=== PATIENT | female | born 1995 | race Caucasian/White ===

== ENCOUNTER 2016-10-16 21:02 | Emergency (ER) | payer BC ==
[2016-10-16 21:58] LABS: Hematocrit 42 % (35-47); Hemoglobin 14.2 g/dl (12.0-16.0); Mean Corpuscular HGB Conc 34 g/dl (31-36); Mean Corpuscular Hemoglobin 31 pg (27-31); Mean Corpuscular Volume 91 fL (80-97); Mean Platelet Volume 8 um3 (7.4-10.4); Red Blood Count 4.64 10^6/ul (4.0-5.4); Red Cell Distribution Width 12 % (10.5-15); White Blood Count 8.9 10^3/ul (3.5-10.8)
[2016-10-16 22:09] LABS: ALT 7 U/L (7-52); AST 18 U/L (13-39); Alkaline Phosphatase 68 U/L (34-104); Anion Gap 10 mmol/L (2-11); BUN/Creatinine Ratio 13.5 (8-20); Benzodiazepine Urine Screen None Detected (None Detect); Blood Urea Nitrogen 10 mg/dL (6-24); CO2 Carbon Dioxide 23 mmol/L (22-32); Calcium 10.1 mg/dL (8.6-10.3); Chloride 104 mmol/L (101-111); EGFR African American 127.4 (>60); EGFR Non-African American 99.1 (>60); Globulin 3.2 g/dL (2-4); Glucose 104 mg/dL (70-100); Potassium 3.5 mmol/L (3.5-5.0); Sodium 137 mmol/L (133-145); Total Protein 8.2 g/dL (6.4-8.9); Urine Bacteria 1+ (Absent); Urine Bilirubin Negative (Negative); Urine Glucose Negative (Negative); Urine Nitrite Negative (Negative)
[2016-10-16 22:36] LABS: Acetaminophen < 15 mcg/mL; Alcohol < 10 mg/dL (<10); Salicylate < 2.50 mg/dL (<30)
[2016-10-16 22:47] LABS: TSH (Thyroid Stimulating Horm) 1.07 mcIU/mL (0.34-5.60)
[2016-10-17] MEDS ORDERED: Acetaminophen TAB* 325 MG PO ONE (00:42)
[2016-10-17] MEDS ORDERED: Acetaminophen TAB* 325 MG ONE (00:44)
[2016-10-17] MEDS ORDERED: Ondansetron ODT TAB* 4 MG PO ONE (01:01)
[2016-10-17] MEDS ORDERED: Ondansetron ODT TAB* 4 MG ONE (01:02)
[2016-10-17 06:56] VITALS: BP 109/53
--- NOTE | 2016-10-19 23:44 | ED ---
I, Oh,Diana, scribed for Robert Maxwell MD on 10/16/16 at 2221 . Psychiatric Complaint - HPI Summary HPI Summary: This 21 y/o female presents to ED after mother called police for pt's expression of SI. Pt reports that she had a dispute with her mother and made statement involving "blowing my brains out". Pt is currently denying any SI or any plan, dismissing her earlier SI statement and stating her mother is "being stupid". PMHx does include known depression with tx hx with prozac. - History Of Current Complaint Chief Complaint: EDMentalHealth Time Seen by Provider: 10/16/16 21:53 Hx Obtained From: Patient, Medical Records Onset/Duration: Sudden Onset Timing: Constant Severity Initially: Moderate Severity Currently: Moderate Character: Depressed Aggravating Factor(s): Nothing Alleviating Factor(s): Nothing Associated Signs And Symptoms: Positive: Negative Related History: Positive For: Prior Psychiatric Issues - Allergies/Home Medications Allergies/Adverse Reactions: Allergies Allergy/AdvReac Type Severity Reaction Status Date / Time No Known Allergies Allergy Verified 10/17/16 00:47 PMH/Surg Hx/FS Hx/Imm Hx Psychiatric History: Reports: Hx Depression Infectious Disease History: No Infectious Disease History: Denies: Traveled Outside the US in Last 30 Days - Family History Known Family History: Negative: Cardiac Disease - Social History Alcohol Use: None Hx Substance Use: No Substance Use Type: Reports: None Hx Tobacco Use: No Smoking Status (MU): Never Smoked Tobacco Review of Systems Negative: Fever Negative: Erythema Negative: Sore Throat Negative: Chest Pain Negative: Shortness Of Breath Negative: Abdominal Pain, Nausea Negative: dysuria, hematuria Negative: Myalgia, Edema Negative: Rash Neurological: Other - negative for dizziness Positive: Depressed All Other Systems Reviewed And Are Negative: Yes Physical Exam - Summary Physical Exam Summary: Constitutional: Well-developed, Well-nourished, Alert. (-) Distressed Skin: Warm, Dry HENT: Normocephalic; Atraumatic Eyes: Conjunctiva normal Neck: Musculoskeletal ROM normal neck. (-) JVD, (-) Stridor, (-) Tracheal deviation Cardio: Rhythm regular, rate normal, Heart sounds normal; Intact distal pulses; The pedal pulses are 2+ and symmetric. Radial pulses are 2+ and symmetric. (-) Murmur Pulmonary/Chest wall: Effort normal. (-) Respiratory distress, (-) Wheezes, (-) Rales Abd: Soft, (-) Tenderness, (-) Distension, (-) Guarding, (-) Rebound Musculoskeletal: (-) Edema Lymph: (-) Cervical adenopathy Neuro: Alert, Oriented x3 Psych: Mood and affect Normal Triage Information Reviewed: Yes Vital Signs On Initial Exam: Initial Vitals Temp Pulse Resp BP Pulse Ox 99.3 F 97 18 121/62 98 10/16/16 21:19 10/16/16 21:19 10/16/16 21:19 10/16/16 21:19 10/16/16 21:19 Vital Signs Reviewed: Yes Diagnostics - Vital Signs Vital Signs Temp Pulse Resp BP Pulse Ox 10/16/16 21:19 99.3 F 97 18 121/62 98 - Laboratory Lab Results: Lab Results 10/16/16 10/16/16 10/16/16 Range/Units 21:45 21:45 21:45 WBC 8.9 (3.5-10.8) 10^3/ul RBC 4.64 (4.0-5.4) 10^6/ul Hgb 14.2 (12.0-16.0) g/dl Hct 42 (35-47) % MCV 91 (80-97) fL MCH 31 (27-31) pg MCHC 34 (31-36) g/dl RDW 12 (10.5-15) % Plt Count 232 (150-450) 10^3/ul MPV 8 (7.4-10.4) um3 Neut % (Auto) 71.2 (38-83) % Lymph % (Auto) 21.8 L (25-47) % [place] % (Auto) 5.5 (1-9) % Eos % (Auto) 0.8 (0-6) % Baso % (Auto) 0.7 (0-2) % Absolute Neuts (auto) 6.3 (1.5-7.7) 10^3/ul Absolute Lymphs (auto) 1.9 (1.0-4.8) 10^3/ul Absolute Monos (auto) 0.5 (0-0.8) 10^3/ul Absolute Eos (auto) 0.1 (0-0.6) 10^3/ul Absolute Basos (auto) 0.1 (0-0.2) 10^3/ul Absolute Nucleated RBC 0 10^3/ul Nucleated RBC % 0 Sodium 137 (133-145) mmol/L Potassium 3.5 (3.5-5.0) mmol/L Chloride 104 (101-111) mmol/L Carbon Dioxide 23 (22-32) mmol/L Anion Gap 10 (2-11) mmol/L BUN 10 (6-24) mg/dL Creatinine 0.74 (0.51-0.95) mg/dL Est GFR ( Amer) 127.4 (>60) Est GFR (Non-Af Amer) 99.1 (>60) BUN/Creatinine Ratio 13.5 (8-20) Glucose 104 H (70-100) mg/dL Calcium 10.1 (8.6-10.3) mg/dL Total Bilirubin 0.50 (0.2-1.0) mg/dL AST 18 (13-39) U/L ALT 7 (7-52) U/L Alkaline Phosphatase 68 (34-104) U/L Total Protein 8.2 (6.4-8.9) g/dL Albumin 5.0 (3.2-5.2) g/dL Globulin 3.2 (2-4) g/dL Albumin/Globulin Ratio 1.6 (1-3) TSH 1.07 (0.34-5.60) mcIU/mL Urine Color Yellow Urine Appearance Clear Urine pH 6.0 (5-9) Ur Specific [place] 1.006 L (1.010-1.030) Urine Protein 1+(30 mg/dl) H (Negative) Urine Ketones Negative (Negative) Urine Blood Negative (Negative) Urine Nitrate Negative (Negative) Urine Bilirubin Negative (Negative) Urine Urobilinogen Negative (Negative) Ur Leukocyte Esterase Negative (Negative) Urine WBC (Auto) Trace(0-5/hpf) (Absent) Urine RBC (Auto) Trace(0-2/hpf) (Absent) Ur Squamous Epith Cells Present H (Absent) Urine Bacteria 1+ H (Absent) Urine Glucose Negative (Negative) Salicylates < 2.50 (<30) mg/dL Urine Opiates Screen (None Detect) Acetaminophen < 15 mcg/mL Ur Barbiturates Screen (None Detect) Ur Phencyclidine Scrn (None Detect) Ur Amphetamines Screen (None Detect) U Benzodiazepines Scrn (None Detect) Urine Cocaine Screen (None Detect) U Cannabinoids Screen (None Detect) Serum Alcohol < 10 (<10) mg/dL 10/16/16 Range/Units 21:45 WBC (3.5-10.8) 10^3/ul RBC (4.0-5.4) 10^6/ul Hgb (12.0-16.0) g/dl Hct (35-47) % MCV (80-97) fL MCH (27-31) pg MCHC (31-36) g/dl RDW (10.5-15) % Plt Count (150-450) 10^3/ul MPV (7.4-10.4) um3 Neut % (Auto) (38-83) % Lymph % (Auto) (25-47) % [place] % (Auto) (1-9) % Eos % (Auto) (0-6) % Baso % (Auto) (0-2) % Absolute Neuts (auto) (1.5-7.7) 10^3/ul Absolute Lymphs (auto) (1.0-4.8) 10^3/ul Absolute Monos (auto) (0-0.8) 10^3/ul Absolute Eos (auto) (0-0.6) 10^3/ul Absolute Basos (auto) (0-0.2) 10^3/ul Absolute Nucleated RBC 10^3/ul Nucleated RBC % Sodium (133-145) mmol/L Potassium (3.5-5.0) mmol/L Chloride (101-111) mmol/L Carbon Dioxide (22-32) mmol/L Anion Gap (2-11) mmol/L BUN (6-24) mg/dL Creatinine (0.51-0.95) mg/dL Est GFR ( Amer) (>60) Est GFR (Non-Af Amer) (>60) BUN/Creatinine Ratio (8-20) Glucose (70-100) mg/dL Calcium (8.6-10.3) mg/dL Total Bilirubin (0.2-1.0) mg/dL AST (13-39) U/L ALT (7-52) U/L Alkaline Phosphatase (34-104) U/L Total Protein (6.4-8.9) g/dL Albumin (3.2-5.2) g/dL Globulin (2-4) g/dL Albumin/Globulin Ratio (1-3) TSH (0.34-5.60) mcIU/mL Urine Color Urine Appearance Urine pH (5-9) Ur Specific [place] (1.010-1.030) Urine Protein (Negative) Urine Ketones (Negative) Urine Blood (Negative) Urine Nitrate (Negative) Urine Bilirubin (Negative) Urine Urobilinogen (Negative) Ur Leukocyte Esterase (Negative) Urine WBC (Auto) (Absent) Urine RBC (Auto) (Absent) Ur Squamous Epith Cells (Absent) Urine Bacteria (Absent) Urine Glucose (Negative) Salicylates (<30) mg/dL Urine Opiates Screen None detected (None Detect) Acetaminophen mcg/mL Ur Barbiturates Screen None detected (None Detect) Ur Phencyclidine Scrn None detected (None Detect) Ur Amphetamines Screen None detected (None Detect) U Benzodiazepines Scrn None detected (None Detect) Urine Cocaine Screen None detected (None Detect) U Cannabinoids Screen Presumptive positive H (None Detect) Serum Alcohol (<10) mg/dL Result Diagrams: 10/16/16 21:45 10/16/16 21:45 Lab Statement: Any lab studies that have been ordered have been reviewed, and results considered in the medical decision making process. Course/Dx - Course Assessment/Plan: This 21 y/o female presents to ED as 941 after pt's mother called law enforcement regarding her SI statement. Pt reports that she got involved with verbal dispute with her mother and made statement involving "blowing my brains out". At the time of initial evaluation pt is dismissing SI statement, stating that her mother is "being stupid". Pt is not in acute distress or pain at the time of initial evaluation. Bloodwork is wnl. UA is also wnl except some contamination. Toxicology indicates presumptive positive for cannabinoid. Pt is at this moment at 2225 PM medically cleared for psych eval. - Differential Dx/Clinical Impression Provider Diagnosis: Depression - Physician Notifications Discussed Care Of Patient With: Mental Health Unit Patient Is Medically Stable For: Psych Evaluation - at 2225 PM Discharge - Discharge Plan Condition: Stable Disposition: HOME Patient Education Materials: Depression (ED), Suicide Prevention for Adults (ED ), Anxiety (ED) Referrals: [facility][1] [Other] (Please call [facility] and request an intake appointment to establish regular therapy.) The documentation as recorded by the Chidi naranjo Soohyun accurately reflects the service I personally performed and the decisions made by me, Robert Maxwell MD.
== END 2016-10-17 07:29 | disposition home or self-care (01) ==
LOC: ED 21:02
DX: F32.9 Major depressive disorder, single episode, unspecified (principal)
CPT/HCPCS: 36415; 80053; 80307; 80320; 80329; 81003; 81015; 84443; 85025; 87086; 99284; A9270-GY; G0480

== ENCOUNTER → 2017-10-20 00:40 | Emergency (ER) | payer BC ==
[~2017-10-20 00:40] MED LIST: Haloperidol INJ IV/IM* 5 MG/ML AMP ONE; LORazepam INJ* 2 MG/ML 1 ML VIAL ONE; diPHENhydraMINE IV* 50 MG/ML 1 ml VIAL (BENADRYL) ONE
[2017-10-20 02:01] LABS: ABS Basophils 0 10^3/ul (0-0.2); ABS Eosinophils 0 10^3/ul (0-0.6); ABS Lymphocytes 1.9 10^3/ul (1.0-4.8); ABS Monocytes 0.4 10^3/ul (0-0.8); ABS Neutrophils 3.7 10^3/ul (1.5-7.7); ABS Nucleated RBC 0 10^3/ul; Eosinophil % 0.5 % (0-6); Hematocrit 41 % (35-47); Hemoglobin 14.1 g/dl (12.0-16.0); Lymphocyte % 31.2 % (25-47); Mean Corpuscular HGB Conc 35 g/dl (31-36); Mean Corpuscular Hemoglobin 33 pg (27-31); Mean Corpuscular Volume 96 fL (80-97); Mean Platelet Volume 8 um3 (7.4-10.4); Nucleated Red Blood Cells % 0; Platelet Count 236 10^3/ul (150-450); Red Blood Count 4.28 10^6/ul (4.0-5.4); Red Cell Distribution Width 13 % (10.5-15)
[2017-10-20 02:15] LABS: EGFR Non-African American 101.3 (>60)
--- NOTE | 2017-10-20 07:55 | ED ---
Abhishek Golden Angela, scribed for David Duran MD on 10/20/17 at 0058 . Psychiatric Complaint - HPI Summary HPI Summary: This pt is a 22 y/o female presenting to [facility] via police officers on a 9.41. reports the pt was with a friend leaving from the bar and pt wanted to walk to her house (which is 5 miles away). Friend reported pt only had a couple of drinks but is unknown is she took any drugs. states the pt has been making irrational decisions and talking to herself. notes they got her step-father to pick her up from the street but she jumped off his truck. Step- father made a comment about the pt "going through a rough time." states the pt was not willing to get into their police car. At one point pt called her boss and went off on him. Boss notes the pt's behavior is not normal and he has never seen the pt like this. reports the pt has made SI comments, about cutting her wrist. Per ED security, pt has made comments about "wanting to fight" the ED staff. denies pt has made auditory or visual hallucinations comments. HPI is limited due to level 5 caveat - pt is uncooperative and combative in the ED. - History Of Current Complaint Chief Complaint: EDMentalHealth Hx Obtained From: Other: - Hx From Patient Unobtainable Due To: Other - pt is uncooperative Onset/Duration: Still Present Timing: Intermittent Episode Lasting Severity Currently: Severe Character: Manic, Stuporous Aggravating Factor(s): Nothing Alleviating Factor(s): Nothing Associated Signs And Symptoms: Positive: Confused, Paranoid Behavior Has Suicidal: Reports: Thoughts, With A Plan, Demonstrates Gesture Has Homicidal: Reports: Thoughts, Demonstrates Gesture. Denies: With A Plan - Allergies/Home Medications Allergies/Adverse Reactions: Allergies Allergy/AdvReac Type Severity Reaction Status Date / Time No Known Allergies Allergy Verified 10/17/16 00:47 PMH/Surg Hx/FS Hx/Imm Hx Endocrine/Hematology History: Denies: Hx Diabetes Cardiovascular History: Denies: Hx Hypertension Psychiatric History: Reports: Hx Depression Denies: Hx Eating Disorder Infectious Disease History: No Infectious Disease History: Denies: Traveled Outside the [place] in Last 30 Days - Family History Known Family History: Positive: Unknown - due to level 5 caveat - pt is uncooperative and combative Negative: Cardiac Disease - Social History Alcohol Use: None Hx Substance Use: No Substance Use Type: Reports: None Substance Use Comment - Amount & Last Used: occasionally Hx Tobacco Use: No Smoking Status (MU): Never Smoked Tobacco Review of Systems - ROS Summary Review of Systems Summary: ROS IS LIMITED DUE TO LEVEL 5 CAVEAT - PT IS UNCOOPERATIVE AND COMBATIVE Negative: Fever, Chills Psychological: Other - SI thoughts/plan, HI thoughts. Irrational. Combative. All Other Systems Reviewed And Are Negative: No Physical Exam - Summary Physical Exam Summary: Appearance: Well-appearing, Well-nourished Skin: Warm Eyes: Normal ENT: Normal Neck: Supple, nontender Respiratory: Clear to auscultation Cardiovascular: Normal S1, S2. No murmurs. Normal distal pulses. Abdomen: Soft, nontender Musculoskeletal: Normal, Strength/ROM Intact Neurological: Normal, A&Ox3. No obvious focal abnormalities. Psychiatric: Pt is unwilling to answer questions. Appears agitated and combative , has made threats to hurt staff and police officers. Triage Information Reviewed: Yes Vital Signs On Initial Exam: Initial Vitals Temp Pulse Resp BP Pulse Ox 97.4 F 132 24 133/109 99 10/20/17 00:43 10/20/17 00:43 10/20/17 00:43 10/20/17 00:43 10/20/17 00:43 Vital Signs Reviewed: Yes Diagnostics - Vital Signs Vital Signs Temp Pulse Resp BP Pulse Ox 10/20/17 00:43 97.4 F 132 24 133/109 99 - Laboratory Lab Results: Lab Results 10/20/17 10/20/17 Range/Units 01:35 01:35 WBC 6.0 (3.5-10.8) 10^3/ul RBC 4.28 (4.0-5.4) 10^6/ul Hgb 14.1 (12.0-16.0) g/dl Hct 41 (35-47) % MCV 96 (80-97) fL MCH 33 H (27-31) pg MCHC 35 (31-36) g/dl RDW 13 (10.5-15) % Plt Count 236 (150-450) 10^3/ul MPV 8 (7.4-10.4) um3 Neut % (Auto) 61.6 (38-83) % Lymph % (Auto) 31.2 (25-47) % [place] % (Auto) 6.2 (1-9) % Eos % (Auto) 0.5 (0-6) % Baso % (Auto) 0.5 (0-2) % Absolute Neuts (auto) 3.7 (1.5-7.7) 10^3/ul Absolute Lymphs (auto) 1.9 (1.0-4.8) 10^3/ul Absolute Monos (auto) 0.4 (0-0.8) 10^3/ul Absolute Eos (auto) 0 (0-0.6) 10^3/ul Absolute Basos (auto) 0 (0-0.2) 10^3/ul Absolute Nucleated RBC 0 10^3/ul Nucleated RBC % 0 Sodium 145 (133-145) mmol/L Potassium 3.5 (3.5-5.0) mmol/L Chloride 110 (101-111) mmol/L Carbon Dioxide 25 (22-32) mmol/L Anion Gap 10 (2-11) mmol/L BUN 8 (6-24) mg/dL Creatinine 0.72 (0.51-0.95) mg/dL Est GFR ( Amer) 130.3 (>60) Est GFR (Non-Af Amer) 101.3 (>60) BUN/Creatinine Ratio 11.1 (8-20) Glucose 90 (70-100) mg/dL Calcium 9.3 (8.6-10.3) mg/dL Total Bilirubin 0.30 (0.2-1.0) mg/dL AST 24 (13-39) U/L ALT 15 (7-52) U/L Alkaline Phosphatase 75 (34-104) U/L Total Protein 7.6 (6.4-8.9) g/dL Albumin 4.7 (3.2-5.2) g/dL Globulin 2.9 (2-4) g/dL Albumin/Globulin Ratio 1.6 (1-3) TSH 1.12 (0.34-5.60) mcIU/mL Beta HCG, Quant < 0.60 mIU/mL Salicylates < 2.50 (<30) mg/dL Acetaminophen < 15 mcg/mL Serum Alcohol 304 H (<10) mg/dL Result Diagrams: 10/20/17 01:35 10/20/17 01:35 Lab Statement: Any lab studies that have been ordered have been reviewed, and results considered in the medical decision making process. - CT Brain CT CT Interpretation: No Acute Changes - IMPRESSION: No evidence of pathology. Dr. Duran has reviewed this radiology report. CT Interpretation Completed By: Radiologist - EKG 03:05 Cardiac Rate: NL EKG Rhythm: Sinus Rhythm - at 75 bpm Course/Dx - Course Assessment/Plan: Pt was medicated for the her own safety and safety of others. Pt will be signed out to the next ED attending, pending disposition, awainting MHE. - Differential Dx/Clinical Impression Provider Diagnosis: At risk for altered mental status, Suicidal ideation - Physician Notifications Patient Is Medically Stable For: Psych Evaluation Discharge - Discharge Plan Condition: Stable Disposition: OTHER Discharge Disposition Comment: signed out to the next ED attending, pending dispo, awaiting MHE. The documentation as recorded by the Abhishek naranjo Angela accurately reflects the service I personally performed and the decisions made by Renee valle Dong, MD.
[2017-10-20 08:14] LABS: Urine Appearance Clear; Urine Blood Negative (Negative); Urine Color Yellow; Urine Ketones Negative (Negative); Urine Protein Negative (Negative); Urine Specific Gravity 1.004 (1.010-1.030); Urine Urobilinogen Negative (Negative)
--- NOTE | 2017-10-20 08:21 | RAD ---
INDICATION: Altered mental status COMPARISON: None TECHNIQUE: Noncontrast axial source images were acquired from the skull base to the vertex. The examination is limited to minor degree due to motion artifact. The patient was combative FINDINGS: Ventricles/sulci: The ventricles and cisterns are normal in size and configuration for age. Brain parenchyma: There is no focal parenchymal finding, evidence of intracranial mass, or intracranial mass effect. Intracranial hemorrhage:None. Extra-axial spaces: There are no abnormal extra axial fluid collections or evidence of extra-axial mass. Calvarium: There is no calvarial fracture or other calvarial abnormality. Scalp: There is no evidence of scalp or extracalvarial soft tissue abnormality. Paranasal sinuses/mastoid: The paranasal sinuses and mastoid air cells are clear. Other: None. IMPRESSION: No acute intracranial findings.
[2017-10-20 11:04] VITALS: BP 106/50
--- NOTE | 2017-10-21 21:12 | ED ---
Le Golden Nilda, scribed for Walter Lopez MD on 10/20/17 at 1901 . Progress - Progress Note Progress Note: This pt is s/o by Dr. Duran, pending MHE. The pt is hemodynamically stable, alert and oriented x3. Pt will be s/o pending shift change, still awaiting MHE. - Consult/PCP Time Called: 09:49 Course/Dx - Course Course Of Treatment: This pt is s/o by Dr. Duran, pending MHE. The pt is hemodynamically stable, alert and oriented x3. Pt will be s/o pending shift change, still awaiting MHE. - Diagnoses Provider Diagnoses: At risk for altered mental status, Suicidal ideation The documentation as recorded by the mananibLe gauthier Nilda accurately reflects the service I personally performed and the decisions made by , Walter Lopez MD.
== END ==
LOC: ED 00:40
DX: R45.851 Suicidal ideations (principal); R41.82 Altered mental status, unspecified; Z86.59 Personal history of other mental and behavioral disorders
CPT/HCPCS: 36415; 70450; 80053; 80307; 80320; 80329; 81003; 84443; 84702; 85025; 93005; 99284; G0480; J1200; J1630; J2060

== ENCOUNTER 2017-12-07 05:33 | Emergency (ER) | payer BC ==
[2017-12-07 06:33] LABS: ABS Basophils 0.1 10^3/ul (0-0.2); ABS Eosinophils 0.1 10^3/ul (0-0.6); ABS Lymphocytes 2.5 10^3/ul (1.0-4.8); ABS Monocytes 0.8 10^3/ul (0-0.8); ABS Nucleated RBC 0 10^3/ul; Eosinophil % 1.3 % (0-6); Hematocrit 47 % (35-47); Hemoglobin 16.1 g/dl (12.0-16.0); Lymphocyte % 29.8 % (25-47); Mean Corpuscular HGB Conc 34 g/dl (31-36); Mean Corpuscular Hemoglobin 33 pg (27-31); Mean Corpuscular Volume 96 fL (80-97); Mean Platelet Volume 7.3 um3 (7.4-10.4); Nucleated Red Blood Cells % 0.1; Platelet Count 286 10^3/ul (150-450); Red Blood Count 4.89 10^6/ul (4.0-5.4); Red Cell Distribution Width 14 % (10.5-15); White Blood Count 8.5 10^3/ul (3.5-10.8)
[2017-12-07 06:45] LABS: EGFR Non-African American 104.6 (>60)
--- NOTE | 2017-12-07 06:45 | ED ---
Brendan Golden Rebecca, scribed for Hannah Harp MD on 12/07/17 at 0551 . Substance Abuse/Use - HPI Summary HPI Summary: Pt is a 22 y/o F B[facility] as a 2208 due to EtOH abuse and combativeness with her family [employer]GER. Per [employer] officers, the pt has been drinking with her friends last night, ceasing between 0000 and 0030. 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 Her mother called the [employer] department as she had been combative. 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 Associated Signs And Symptoms: Other: - Urinary incontinence x2 - Allergies/Home Medications Allergies/Adverse Reactions: Allergies Allergy/AdvReac Type Severity Reaction Status Date / Time No Known Allergies Allergy Verified 10/17/16 00:47 PMH/Surg Hx/FS Hx/Imm Hx Endocrine/Hematology History: Denies: Hx Diabetes Cardiovascular History: Denies: Hx Hypertension Psychiatric History: Reports: Hx Depression Denies: Hx Eating Disorder, Hx of Violent Episodes Against Others Infectious Disease History: Unable to Obtain/Confirm Infectious Disease History: Denies: Traveled Outside the [place] in Last 30 Days - Family History Known Family History: Negative: Cardiac Disease - Social History Alcohol Use: None Hx Substance Use: No Substance Use Type: Reports: None Substance Use Comment - Amount & Last Used: occasionally Hx Tobacco Use: No Smoking Status (MU): Never Smoked Tobacco Review of Systems Positive: incontinence - Urinary 2x 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 GENERAL: ~Patient is a well-developed and nourished female who is lying comfortable in the stretcher. Patient is not in any acute respiratory distress. She is tearful, crying, and laughing with flight of ideas. Appears intoxicated. HEAD AND FACE: No signs of trauma. No ecchymosis, hematomas or skull depressions. No sinus tenderness. EYES: PERRLA, EOMI x 2, No injected conjunctiva, no nystagmus. EARS: Hearing grossly intact. Ear canals and tympanic membranes are within normal limits. MOUTH: Oropharynx within normal limits. NECK: Supple, trachea is midline, no adenopathy, no JVD CHEST: Symmetric LUNGS: Clear to auscultation bilaterally. No wheezing or crackles. CVS: Regular rate and rhythm, S1 and S2 present, no murmurs or gallops appreciated. EXTREMITIES: FROM in all major joints, no edema, no cyanosis or clubbing. NEURO: Alert and oriented x 3. No acute neurological deficits. Speech is normal and follows commands. SKIN: Dry and warm Triage Information Reviewed: Yes Vital Signs On Initial Exam: Initial Vitals Temp Pulse Resp BP Pulse Ox 97.2 F 94 16 112/73 96 12/07/17 05:35 12/07/17 05:35 12/07/17 05:35 12/07/17 05:35 12/07/17 05:35 Vital Signs Reviewed: Yes Diagnostics - Vital Signs Vital Signs Temp Pulse Resp BP Pulse Ox 12/07/17 05:35 97.2 F 94 16 112/73 96 - Laboratory Lab Statement: Any lab studies that have been ordered have been reviewed, and results considered in the medical decision making process. 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 Per [employer] officers, the pt has been drinking with her friends last night, ceasing between 0000 and 0030. 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 Her mother called the [employer] department as she had been combative. When asked how much she drinks, the patient first states "we're not gonna talk about that" then "I drink a lot just because I can." Pt will be signed out to Dr. Golden, pending disposition, awaiting EtOH metabolism. - Diagnoses Provider Diagnoses: Alcohol intoxication Discharge - Sign-Out/Discharge Documenting (check all that apply): Sign-Out Patient Signing out patient TO: Aron Golden - Discharge Plan Condition: Stable Referrals: No Primary Care Phys,NOPCP [Primary Care Provider] - The documentation as recorded by the Brendan naranjo Rebecca accurately reflects the service I personally performed and the decisions made by , Hannah Harp MD.
[2017-12-07 12:25] VITALS: BP 119/83
--- NOTE | 2017-12-07 15:53 | ED ---
Marisa Golden Thomas, scribed for Aron Golden MD on 12/07/17 at 1135 . Progress - Progress Note Progress Note: The patient is a sign out from Dr. Harp at shift change, pending alcohol metabolism. The patient has a safe ride home. After alcohol metabolism, she will be discharged. Course/Dx - Course Course Of Treatment: Ms. Ronquillo came in on a 2209 and was found to be quite intoxicated. I estemated that she would be sober by the numbers at about 1600. About 1300, she woke up and was clinically sober. She was able to find a sober ride home and was D/C'd in stable condition. - Diagnoses Provider Diagnoses: Alcohol intoxication Discharge - Sign-Out/Discharge Documenting (check all that apply): Discharge, Receiving Sign-Out Receiving patient FROM: Hannah Harp - Discharge Plan Condition: Stable Disposition: HOME Patient Education Materials: Alcohol Intoxication (ED), Abuse of Alcohol (ED) Referrals: [facility] [Outside] - 3 Days Additional Instructions: Follow up with your primary care physician in three days. Return to the emergency department for any new or worsening symptoms. - Billing Disposition and Condition Condition: STABLE Disposition: HOME The documentation as recorded by the Marisa naranjo Thomas accurately reflects the service I personally performed and the decisions made by , Aron Golden MD.
== END 2017-12-07 12:22 | disposition home or self-care (01) ==
LOC: ED 05:33
DX: F10.129 Alcohol abuse with intoxication, unspecified (principal)
CPT/HCPCS: 36415; 80053; 80320; 80329; 84443; 84702; 85025; 99285; G0480